=== PATIENT | male | born 1970 | race Two or more races ===

== ENCOUNTER → 2017-08-19 06:35 | Outpatient (CLI) | payer OTHER ==
[~2017-08-19 06:35] MED LIST: AMBIEN5 MG; DIPROLENE AF 0.50 GM TOP; GLUCOTROL10 MG; GLUMETZA1000 MG; HUMALOG100 U/ML; INDOMETHACIN50 MG PO; LANTUS100 U/ML; LASIX20 MG; LOPID PO; LOTRISONE CREAM45 GM TOP; NEURONTIN600 MG; OMEPRAZOLE10 MG; ORALONE5 GM DT; PRILOSEC10 M1; SEPTRA DS PO; TAMS0.4C; TIZANIDINE HCL2 MG PO; TORADOL60 MG IM; ULTRACET PO; ULTRAM50 MG PO; VASOTEC10 MG; VOLTAREM 50 MG PO; ZYLOPRIM300 MG PO
== END | disposition home or self-care (01) ==
LOC: LAB 06:35
DX: Z79.4 Long term (current) use of insulin (principal); E11.42 Type 2 diabetes mellitus with diabetic polyneuropathy; E11.51 Type 2 diabetes mellitus with diabetic peripheral angiopathy without gangrene; E11.65 Type 2 diabetes mellitus with hyperglycemia; E11.9 Type 2 diabetes mellitus without complications; E66.8 Other obesity; I10 Essential (primary) hypertension; M54.14 Radiculopathy, thoracic region; M54.31 Sciatica, right side; M54.5 Low back pain; L03.032 Cellulitis of left toe

== ENCOUNTER → 2019-09-07 | Outpatient (CLI) | payer OTHER | END | disposition home or self-care (01) | LOC: RAD 09:02 | DX: M25.512 Pain in left shoulder (principal); M54.2 Cervicalgia ==

== ENCOUNTER 2019-11-01 07:44 | Emergency (ER) | payer OTHER ==
[~2019-11-01] VITALS: Ht 180.3 cm; Wt 129.3 kg
== END 2019-11-01 11:54 | disposition home or self-care (01) ==
LOC: ER 07:44
DX: J06.9 Acute upper respiratory infection, unspecified (principal)